=== PATIENT | male | born 1955 | race Caucasian/White ===

== ENCOUNTER 2020-03-05 14:49 | Emergency (ER) | payer BC, SELFPAY ==
[2020-03-05] VITALS (13 sets, daily range): BP systolic 117–168; BP diastolic 75–100; PULSE 60–64; RESP 14–25; TEMP 36.9; O2SAT 92–98; BMI 30.1
--- NOTE | 2020-03-05 15:05 | XR_ITS ---
WS: [id number] Portable AP upright chest, 03/05/2020 Clinical Data: Chest pain Comparison: Portable chest, 12/09/2018. Findings: No nodules, masses or effusions are seen. The heart is normal. The pulmonary vascularity is not increased. No pneumonia or pneumothorax is seen. There is a pacemaker in good position with the generator overlying the left axilla. XR/XR chest 1V portable [id number] Impression: Negative chest.
--- NOTE | 2020-03-05 15:06 | ECG_ITS ---
[facility] Test Date: 2020-03-05 Pat Name: Juan Tolliver Department: Room: Gender: Male Rn Field Case Manager: JESSENIA : 1955 Requested By: Marlena Will Order Number: [id number] Bhargavi MD: Raj Ha M.D. Measurements Intervals [place] Rate: 61 P: -41 IN: 257 QRS: 22 QRSD: 101 T: 33 QT: 368 QTc: 371 Interpretive Statements ELECTRONIC ATRIAL PACEMAKER ABNORMAL RHYTHM ECG Compared to ECG 12/09/2018 10:11:52 Ventricular-paced complex(es) or rhythm no longer present Electronically Signed On 03-05-2020 18:21:50 CDT by Raj Ha M.D. [id number]
--- NOTE | 2020-03-05 15:24 | ED_ITS ---
Documented by User: Marlena Gutierrez 03/05/20 17:44 HPI - Chest Pain General: Chief Complaint: Chest Pain Stated Complaint: CP Time Seen by Provider: 03/05/20 15:05 Source: patient and family Mode of arrival: ambulatory Limitations: no limitations History of Present Illness: HPI narrative: Juan is a 64-year-old male who comes in complaining of chest pain described as a burning in his epigastric area. States this started about 1 PM and he feels the discomfort also in his back. He thought this was similar but not quite exactly like when he had a rib displaced in the past. He went and saw his chiropractor and had a manipulation performed but no improvement in his pain. On the way to his account the patient became nauseated and diaphoretic. He tried 2 sublingual nitroglycerin that he had at home with no improvement. The patient thinks that these medications are both out of date. 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 Ablation is unaware of anything that makes his pain better or worse and again he tried nitro with no improvement. Patient denies any other complaints or concerns at this time. Associated symptoms: Reports diaphoresis, dyspnea and nausea; Deny abdominal pain, fever(s), palpitations, syncope or vomiting Review of Systems Const: Reports: diaphoresis; Denies: fever(s), chills, body aches, fatigue or malaise Eyes: Denies: change in vision, blurry vision, photophobia, eye discomfort, eye discharge, eye redness or yellow eyes ENMT: Denies: throat pain, odynophagia, hoarseness, swelling of lips/tongue, ear or mastoid pain, ear discharge, change in hearing or nasal discharge Card: Reports: chest pain; Denies: palpitations, irregular heart rhythm, edema, lightheadedness, syncope, pre-syncope, dyspnea on exertion or orthopnea Resp: Reports: dyspnea; Denies: productive cough, non-productive cough, wheezing, hemoptysis or chest congestion GI: Reports: nausea; Denies: abdominal pain, vomiting, hematemesis, coffee ground emesis, heartburn, diarrhea, constipation, GI cramping, hematochezia or melena : Denies: flank pain, dysuria, urinary frequency, urinary urgency or hematuria Musc: Denies: neck pain, back pain, extremity pain, extremity swelling, joint pain, joint swelling, joint redness, joint warmth or joint stiffness Skin/Breast: Denies: rash, pruritus, erythema, skin pain or skin tenderness Neuro: Denies: headache(s), numbness in extremities, weakness in extremities, sensory changes, lack of coordination, difficulty walking, dizziness, vertigo, confusion, Slurred speech present or seizure-like activity Juan/Lymph: Denies: easy bruising, easy bleeding, petechiae, purpura or enlarged lymph nodes All/Imm: Denies: urticaria, throat swelling, tongue swelling, facial swelling or acute wheezing PFSH ED PFSH: Medical History Coronary artery spasm Heart block Pacemaker Physical Exam Const: COMMON NORMALS: no acute distress, patient oriented x3, no limitations and alert GENERAL APPEARANCE: cooperative HENMT: COMMON NORMALS: normocephalic, atraumatic, external ears normal, EAC's normal and Normal external nose present HEAD & SCALP: normal to inspection, normocephalic and atraumatic FACE & SINUS: normal facial exam and face symmetric NOSE: Normal external nose present and Normal nares present EXTERNAL EAR: Yes external ears normal EXTERNAL AUDITORY CANAL: EAC's normal MOUTH: Normal oral and palatal mucosa present, lip normal and tongue normal Eye: COMMON NORMALS: Equal, round and reactive pupils present and conjunctivae normal GENERAL EYE: appearance normal, both eyes and all related structures ALIGNMENT: Yes alignment normal PERIORBITAL: periorbital findings normal EYELID: eyelids normal CONJUNCTIVA: Yes conjunctivae normal SCLERA: sclerae normal PUPIL: Yes Equal, round and reactive pupils present Neck/C-Spine: COMMON NORMALS: full ROM, no lymphadenopathy, supple, no meningeal signs and no JVD GENERAL: Yes normal visual inspection and Yes trachea midline Chest: COMMONS NORMALS: normal inspection of the chest and normal palpation of entire chest wall Resp: COMMON NORMALS: normal respiratory effort, No retractions, No use of accessory muscles and clear to auscultation bilaterally EFFORT & INSPECTION: Yes able to speak in complete sentences and Yes symmetric chest movement AUSCULTATION: clear to auscultation bilaterally, no crackles, no rales, no rhonchi and no wheezes Cardio: COMMON NORMALS: no JVD, regular rate, regular rhythm, S1 normal heart sound present and S2 normal heart sound present RATE: regular rate RHYTHM: regular rhythm HEART SOUNDS: S1 normal heart sound present, S2 normal heart sound present, no click, no gallops, no murmurs and no rubs GI: COMMON NORMALS: Soft to palpation and No hepatosplenomegaly present PALPATION: Yes Soft to palpation, No Tenderness to palpation present (GI), No Guarding due to palpation present (GI), No Rigid due to palpation, Yes No hepatosplenomegaly present, No Hernia present, No Palpable mass present and No Pulsatile mass present : COMMON NORMALS: Yes no CVA tenderness BLADDER/KIDNEY EXAM: Yes no CVA tenderness Back/Pelvis: COMMON NORMALS: no CVA tenderness, thoracic and lumbar spine normal to inspection, no thoracic nor lumbar tenderness and thoraco-lumbar ROM normal Extremity: COMMON NORMALS: normal to inspection, full ROM, capillary refill normal, no joint enlargement, no clubbing, cyanosis or edema and no calf tenderness Neuro: COMMON NORMALS: patient oriented x3, CN's II-XII intact bilaterally, moves all extremities, no focal motor deficits and no sensory deficits noted SENSORIUM/ORIENTATION: Yes alert MENINGEAL SIGNS: Yes no meningeal signs SPEECH: speech normal Psych: COMMON NORMALS: mental status grossly normal, Normal thought process present, cooperative, normal affect, speech normal and activity/motor behavior normal SPEECH: Yes normal speech THOUGHT PROCESS: Normal thought process present Skin: COMMON NORMALS: no rashes or lesions noted, turgor normal, no jaundice, no petechiae and no mottling GENERAL SKIN EXAM: no rashes or lesions noted and turgor normal Course Vital Signs: Vital signs: Vital Signs Temperature 98.4 F 03/05/20 14:58 Pulse Rate 60 03/05/20 18:30 Respiratory Rate 17 03/05/20 18:30 Blood Pressure 137/91 03/05/20 18:30 Pulse Oximetry 98 03/05/20 17:15 MDM - Chest Pain MDM Narrative: Medical decision making narrative: 2620 -Case reviewed with Dr. Dotson. Patient had a completely clean heart cath in 2016. His symptoms today sound atypical. Dr. Dotson feels with the patient second EKG and troponin are unremarkable the story that he is given the patient can be safely discharged to follow-up with Dr. Melton. Patient did get relief here with nitroglycerin but still feels as though he has indigestion. This would give him over 4 hours of constant discomfort so I believe a second EKG and troponin should rule him out definitively. While we are waiting I will go ahead and get a ultrasound of his gallbladder. Lab Data: Labs: Lab Results 03/05/20 03/05/20 03/05/20 Range/Units 15:38 15:38 15:38 WBC 8.1 (4.0-10.0) 10^3/ uL RBC 5.12 (4.1-5.3) 10^6/u L Hgb 15.3 (11.7-16.6) g/dL Hct 46.7 (42.0-52.0) % MCV 91.2 (80-94) fL MCH 29.9 (28.0-34.0) pg MCHC 32.8 (30.0-36.0) g/dL RDW 12.0 L (12.1-15.1) % Plt Count 227 (130-400) 10^3/c mm MPV 9.5 (7.4-10.4) fL Neut % (Auto) 56.3 % Lymph % (Auto) 27.1 % [place] % (Auto) 9.8 % Eos % (Auto) 5.8 % Baso % (Auto) 0.5 % Neut # (Auto) 4.58 (1.8-7.7) 10^3/u L Lymph # (Auto) 2.2 (0.8-4.8) 10^3/u L [place] # (Auto) 0.8 (0.2-0.9) 10^3/u L Eos # (Auto) 0.5 (0.0-0.8) 10^3/u L Baso # (Auto) 0.0 (0.0-0.1) 10^3/u L Nucleated RBC % (a uto) 0 % Nucleated RBCs # 0.0 /100WBC PT 13.20 (12.1-14.9) SECO NDS INR 0.97 (0.8-1.2) Sodium 136 (136-145) mmol/L Potassium 4.4 (3.5-5.1) mmol/L Chloride 100 (98-107) mmol/L Carbon Dioxide 26 (22-29) mmol/L Anion Gap 14.4 (5-19) BUN 18 (8-23) mg/dL Creatinine 1.0 (0.7-1.2) mg/dL GFR Calculation 75.7 L (90-130) mL/min Glucose 98 (65-115) mg/dL Calculated Osmolal ity 284 L (285-295) mOsm/k g Calcium 10.2 (8.5-10.5) mg/dL Magnesium 2.1 (1.7-2.3) mg/dL Total Bilirubin 0.3 (0.15-1.2) mg/dL AST 23 (0-40) U/L ALT 28 (0-41) U/L Alkaline Phosphata se 72 (40-130) IU/L Troponin T Baselin e (0-15) ng/L Troponin T 120 Min [place] (0-15) ng/L NT-Pro-B Natriuret Pep 84 (0-125) pg/mL Total Protein 6.9 (6.6-8.7) g/dL Albumin 4.5 (3.5-5.2) g/dL Globulin 2.4 (1.3-4.6) g/dL Lipase 33 (13-60) U/L Urine Color (Yellow) Urine Appearance (CLEAR) Urine pH (5-7) Ur Specific Gravit y (1.005-1.030) Urine Protein (Negative) Urine Glucose (UA) (Normal) Urine Ketones (Negative) Urine Blood (Negative) Urine Nitrate (Negative) Urine Bilirubin (Negative) Urine Urobilinogen (Negative) mg/dL Ur Leukocyte Fabby ase (Negative) Urine RBC (0-2) /hpf Urine WBC (0-5) /hpf Ur Squamous Epith Cells (0-5) /hpf Amorphous Sediment Urine Bacteria (NONE) /hpf H. pylori IgG Anti body (Negative) 03/05/20 03/05/20 03/05/20 Range/Units 15:38 15:38 16:22 WBC (4.0-10.0) 10^3/ uL RBC (4.1-5.3) 10^6/u L Hgb (11.7-16.6) g/dL Hct (42.0-52.0) % MCV (80-94) fL MCH (28.0-34.0) pg MCHC (30.0-36.0) g/dL RDW (12.1-15.1) % Plt Count (130-400) 10^3/c mm MPV (7.4-10.4) fL Neut % (Auto) % Lymph % (Auto) % [place] % (Auto) % Eos % (Auto) % Baso % (Auto) % Neut # (Auto) (1.8-7.7) 10^3/u L Lymph # (Auto) (0.8-4.8) 10^3/u L [place] # (Auto) (0.2-0.9) 10^3/u L Eos # (Auto) (0.0-0.8) 10^3/u L Baso # (Auto) (0.0-0.1) 10^3/u L Nucleated RBC % (a uto) % Nucleated RBCs # /100WBC PT (12.1-14.9) SECO NDS INR (0.8-1.2) Sodium (136-145) mmol/L Potassium (3.5-5.1) mmol/L Chloride (98-107) mmol/L Carbon Dioxide (22-29) mmol/L Anion Gap (5-19) BUN (8-23) mg/dL Creatinine (0.7-1.2) mg/dL GFR Calculation (90-130) mL/min Glucose (65-115) mg/dL Calculated Osmolal ity (285-295) mOsm/k g Calcium (8.5-10.5) mg/dL Magnesium (1.7-2.3) mg/dL Total Bilirubin (0.15-1.2) mg/dL AST (0-40) U/L ALT (0-41) U/L Alkaline Phosphata se (40-130) IU/L Troponin T Baselin e 8 (0-15) ng/L Troponin T 120 Min [place] 6.94 (0-15) ng/L NT-Pro-B Natriuret Pep (0-125) pg/mL Total Protein (6.6-8.7) g/dL Albumin (3.5-5.2) g/dL Globulin (1.3-4.6) g/dL Lipase (13-60) U/L Urine Color (Yellow) Urine Appearance (CLEAR) Urine pH (5-7) Ur Specific Gravit y (1.005-1.030) Urine Protein (Negative) Urine Glucose (UA) (Normal) Urine Ketones (Negative) Urine Blood (Negative) Urine Nitrate (Negative) Urine Bilirubin (Negative) Urine Urobilinogen (Negative) mg/dL Ur Leukocyte Fabby ase (Negative) Urine RBC (0-2) /hpf Urine WBC (0-5) /hpf Ur Squamous Epith Cells (0-5) /hpf Amorphous Sediment Urine Bacteria (NONE) /hpf H. pylori IgG Anti body Negative (Negative) 03/05/20 Range/Units 16:29 WBC (4.0-10.0) 10^3/ uL RBC (4.1-5.3) 10^6/u L Hgb (11.7-16.6) g/dL Hct (42.0-52.0) % MCV (80-94) fL MCH (28.0-34.0) pg MCHC (30.0-36.0) g/dL RDW (12.1-15.1) % Plt Count (130-400) 10^3/c mm MPV (7.4-10.4) fL Neut % (Auto) % Lymph % (Auto) % [place] % (Auto) % Eos % (Auto) % Baso % (Auto) % Neut # (Auto) (1.8-7.7) 10^3/u L Lymph # (Auto) (0.8-4.8) 10^3/u L [place] # (Auto) (0.2-0.9) 10^3/u L Eos # (Auto) (0.0-0.8) 10^3/u L Baso # (Auto) (0.0-0.1) 10^3/u L Nucleated RBC % (a uto) % Nucleated RBCs # /100WBC PT (12.1-14.9) SECO NDS INR (0.8-1.2) Sodium (136-145) mmol/L Potassium (3.5-5.1) mmol/L Chloride (98-107) mmol/L Carbon Dioxide (22-29) mmol/L Anion Gap (5-19) BUN (8-23) mg/dL Creatinine (0.7-1.2) mg/dL GFR Calculation (90-130) mL/min Glucose (65-115) mg/dL Calculated Osmolal ity (285-295) mOsm/k g Calcium (8.5-10.5) mg/dL Magnesium (1.7-2.3) mg/dL Total Bilirubin (0.15-1.2) mg/dL AST (0-40) U/L ALT (0-41) U/L Alkaline Phosphata se (40-130) IU/L Troponin T Baselin e (0-15) ng/L Troponin T 120 Min [place] (0-15) ng/L NT-Pro-B Natriuret Pep (0-125) pg/mL Total Protein (6.6-8.7) g/dL Albumin (3.5-5.2) g/dL Globulin (1.3-4.6) g/dL Lipase (13-60) U/L Urine Color Yellow (Yellow) Urine Appearance Clear (CLEAR) Urine pH 7 (5-7) Ur Specific Gravit y 1.010 (1.005-1.030) Urine Protein Neg (Negative) Urine Glucose (UA) Norm (Normal) Urine Ketones Negative (Negative) Urine Blood Neg (Negative) Urine Nitrate Negative (Negative) Urine Bilirubin Neg (Negative) Urine Urobilinogen Norm (Negative) mg/dL Ur Leukocyte Fabby ase Negative (Negative) Urine RBC None (0-2) /hpf Urine WBC None (0-5) /hpf Ur Squamous Epith Cells None (0-5) /hpf Amorphous Sediment Not Reportable Urine Bacteria None (NONE) /hpf H. pylori IgG Anti body (Negative) Imaging Data^: CXR: Attestation: I personally reviewed and interpreted this imaging study as follows: My impression: No acute cardiopulmonary findings. US: My impression: Sound gallbladder, tech interpretation -no VS gallstones. Gallbladder normal. Please see full formal report. EKG Data^: EKG 1: Attestation: I personally reviewed and interpreted this EKG as follows: EKG interpretation date: 03/05/20 EKG interpretation time: 14:55 Interpretation: Atrial paced rhythm at 61 beats a minute, normal axis, no blocks, normal intervals, no acute ST or T wave changes. Discharge Plan Discharge Patient Disposition: Home Clinical Impression: Chest pain Qualifiers: Chest pain type: unspecified Qualified Code(s): R07.9 - Chest pain, unspecified Condition: Stable Prescriptions: New Protonix 40 mg tablet,delayed release (DR/EC) 40 mg PO DAILY Qty: 60 RF: 0 No Action eszopiclone 3 mg tablet 3 mg PO .bedtime RF: 0 amlodipine 5 mg tablet 5 mg PO DAILY RF: 0 fluoxetine 40 mg capsule 40 mg PO DAILY RF: 0 trazodone 50 mg tablet 50 mg PO .bedtime RF: 0 potassium chloride 20 mEq tablet extended release 20 meq PO DAILY RF: 0 magnesium oxide 400 mg (241.3 mg magnesium) tablet 400 mg PO DAILY RF: 0 potassium chloride 20 mEq tablet extended release 20 meq PO DAILY PRN (Reason: electrolyte replenishment) Qty: 90 RF: 1 isosorbide dinitrate 30 mg tablet 15 mg PO BID Qty: 90 RF: 3 metoprolol tartrate 25 mg tablet 12.5 mg PO BID 90 Days Qty: 90 RF: 3 Discharge Orders: Discharge Order (Routine); Ordered 03/05/20 Ordered By: Sacha Clements Referrals: Jose Wilkerson MD [Primary Care Provider] - 1-3 days Discharge Diet: Advance as tolerated Discharge Activity: Resume usual activity Patient Instructions: Chest Pain (ED) Coding Level of Care Code ED Outside Operator for Chg Fwd Exam Comprehensive Documented by User: Sacha Clements MD 03/05/20 19:15 HPI - Chest Pain General: Chief Complaint: Chest Pain Stated Complaint: CP Time Seen by Provider: 03/05/20 15:05 [facility] ED PFSH: Medical History Coronary artery spasm Heart block Pacemaker Course Vital Signs: Vital signs: Vital Signs Temperature 98.4 F 03/05/20 14:58 Pulse Rate 60 03/05/20 18:30 Respiratory Rate 17 03/05/20 18:30 Blood Pressure 137/91 10/22/20 18:30 Pulse Oximetry 98 03/05/20 17:15 MDM - Chest Pain MDM Narrative: Medical decision making narrative: Patient presents here with chest pain and epigastric pain. Patient states the pain did happen after eating it was burning in sensation. Could be gastritis we will start him on Protonix. Initial repeat troponins are negative and ultrasound is negative as well. Patient is stable for discharge is to follow-up with Dr. Dotson and return if worsening. Patient understands agrees the plan. Lab Data: Labs: Lab Results 03/05/20 03/05/20 03/05/20 Range/Units 15:38 15:38 15:38 WBC 8.1 (4.0-10.0) 10^3/ uL RBC 5.12 (4.1-5.3) 10^6/u L Hgb 15.3 (11.7-16.6) g/dL Hct 46.7 (42.0-52.0) % MCV 91.2 (80-94) fL MCH 29.9 (28.0-34.0) pg MCHC 32.8 (30.0-36.0) g/dL RDW 12.0 L (12.1-15.1) % Plt Count 227 (130-400) 10^3/c mm MPV 9.5 (7.4-10.4) fL Neut % (Auto) 56.3 % Lymph % (Auto) 27.1 % [place] % (Auto) 9.8 % Eos % (Auto) 5.8 % Baso % (Auto) 0.5 % Neut # (Auto) 4.58 (1.8-7.7) 10^3/u L Lymph # (Auto) 2.2 (0.8-4.8) 10^3/u L [place] # (Auto) 0.8 (0.2-0.9) 10^3/u L Eos # (Auto) 0.5 (0.0-0.8) 10^3/u L Baso # (Auto) 0.0 (0.0-0.1) 10^3/u L Nucleated RBC % (a uto) 0 % Nucleated RBCs # 0.0 /100WBC PT 13.20 (12.1-14.9) SECO NDS INR 0.97 (0.8-1.2) Sodium 136 (136-145) mmol/L Potassium 4.4 (3.5-5.1) mmol/L Chloride 100 (98-107) mmol/L Carbon Dioxide 26 (22-29) mmol/L Anion Gap 14.4 (5-19) BUN 18 (8-23) mg/dL Creatinine 1.0 (0.7-1.2) mg/dL GFR Calculation 75.7 L (90-130) mL/min Glucose 98 (65-115) mg/dL Calculated Osmolal ity 284 L (285-295) mOsm/k g Calcium 10.2 (8.5-10.5) mg/dL Magnesium 2.1 (1.7-2.3) mg/dL Total Bilirubin 0.3 (0.15-1.2) mg/dL AST 23 (0-40) U/L ALT 28 (0-41) U/L Alkaline Phosphata se 72 (40-130) IU/L Troponin T Baselin e (0-15) ng/L Troponin T 120 Min [place] (0-15) ng/L NT-Pro-B Natriuret Pep 84 (0-125) pg/mL Total Protein 6.9 (6.6-8.7) g/dL Albumin 4.5 (3.5-5.2) g/dL Globulin 2.4 (1.3-4.6) g/dL Lipase 33 (13-60) U/L Urine Color (Yellow) Urine Appearance (CLEAR) Urine pH (5-7) Ur Specific Gravit y (1.005-1.030) Urine Protein (Negative) Urine Glucose (UA) (Normal) Urine Ketones (Negative) Urine Blood (Negative) Urine Nitrate (Negative) Urine Bilirubin (Negative) Urine Urobilinogen (Negative) mg/dL Ur Leukocyte Fabby ase (Negative) Urine RBC (0-2) /hpf Urine WBC (0-5) /hpf Ur Squamous Epith Cells (0-5) /hpf Amorphous Sediment Urine Bacteria (NONE) /hpf H. pylori IgG Anti body (Negative) 03/05/20 03/05/20 03/05/20 Range/Units 15:38 15:38 16:22 WBC (4.0-10.0) 10^3/ uL RBC (4.1-5.3) 10^6/u L Hgb (11.7-16.6) g/dL Hct (42.0-52.0) % MCV (80-94) fL MCH (28.0-34.0) pg MCHC (30.0-36.0) g/dL RDW (12.1-15.1) % Plt Count (130-400) 10^3/c mm MPV (7.4-10.4) fL Neut % (Auto) % Lymph % (Auto) % [place] % (Auto) % Eos % (Auto) % Baso % (Auto) % Neut # (Auto) (1.8-7.7) 10^3/u L Lymph # (Auto) (0.8-4.8) 10^3/u L [place] # (Auto) (0.2-0.9) 10^3/u L Eos # (Auto) (0.0-0.8) 10^3/u L Baso # (Auto) (0.0-0.1) 10^3/u L Nucleated RBC % (a uto) % Nucleated RBCs # /100WBC PT (12.1-14.9) SECO NDS INR (0.8-1.2) Sodium (136-145) mmol/L Potassium (3.5-5.1) mmol/L Chloride (98-107) mmol/L Carbon Dioxide (22-29) mmol/L Anion Gap (5-19) BUN (8-23) mg/dL Creatinine (0.7-1.2) mg/dL GFR Calculation (90-130) mL/min Glucose (65-115) mg/dL Calculated Osmolal ity (285-295) mOsm/k g Calcium (8.5-10.5) mg/dL Magnesium (1.7-2.3) mg/dL Total Bilirubin (0.15-1.2) mg/dL AST (0-40) U/L ALT (0-41) U/L Alkaline Phosphata se (40-130) IU/L Troponin T Baselin e 8 (0-15) ng/L Troponin T 120 Min [place] 6.94 (0-15) ng/L NT-Pro-B Natriuret Pep (0-125) pg/mL Total Protein (6.6-8.7) g/dL Albumin (3.5-5.2) g/dL Globulin (1.3-4.6) g/dL Lipase (13-60) U/L Urine Color (Yellow) Urine Appearance (CLEAR) Urine pH (5-7) Ur Specific Gravit y (1.005-1.030) Urine Protein (Negative) Urine Glucose (UA) (Normal) Urine Ketones (Negative) Urine Blood (Negative) Urine Nitrate (Negative) Urine Bilirubin (Negative) Urine Urobilinogen (Negative) mg/dL Ur Leukocyte Fabby ase (Negative) Urine RBC (0-2) /hpf Urine WBC (0-5) /hpf Ur Squamous Epith Cells (0-5) /hpf Amorphous Sediment Urine Bacteria (NONE) /hpf H. pylori IgG Anti body Negative (Negative) 03/05/20 Range/Units 16:29 WBC (4.0-10.0) 10^3/ uL RBC (4.1-5.3) 10^6/u L Hgb (11.7-16.6) g/dL Hct (42.0-52.0) % MCV (80-94) fL MCH (28.0-34.0) pg MCHC (30.0-36.0) g/dL RDW (12.1-15.1) % Plt Count (130-400) 10^3/c mm MPV (7.4-10.4) fL Neut % (Auto) % Lymph % (Auto) % [place] % (Auto) % Eos % (Auto) % Baso % (Auto) % Neut # (Auto) (1.8-7.7) 10^3/u L Lymph # (Auto) (0.8-4.8) 10^3/u L [place] # (Auto) (0.2-0.9) 10^3/u L Eos # (Auto) (0.0-0.8) 10^3/u L Baso # (Auto) (0.0-0.1) 10^3/u L Nucleated RBC % (a uto) % Nucleated RBCs # /100WBC PT (12.1-14.9) SECO NDS INR (0.8-1.2) Sodium (136-145) mmol/L Potassium (3.5-5.1) mmol/L Chloride (98-107) mmol/L Carbon Dioxide (22-29) mmol/L Anion Gap (5-19) BUN (8-23) mg/dL Creatinine (0.7-1.2) mg/dL GFR Calculation (90-130) mL/min Glucose (65-115) mg/dL Calculated Osmolal ity (285-295) mOsm/k g Calcium (8.5-10.5) mg/dL Magnesium (1.7-2.3) mg/dL Total Bilirubin (0.15-1.2) mg/dL AST (0-40) U/L ALT (0-41) U/L Alkaline Phosphata se (40-130) IU/L Troponin T Baselin e (0-15) ng/L Troponin T 120 Min [place] (0-15) ng/L NT-Pro-B Natriuret Pep (0-125) pg/mL Total Protein (6.6-8.7) g/dL Albumin (3.5-5.2) g/dL Globulin (1.3-4.6) g/dL Lipase (13-60) U/L Urine Color Yellow (Yellow) Urine Appearance Clear (CLEAR) Urine pH 7 (5-7) Ur Specific Gravit y 1.010 (1.005-1.030) Urine Protein Neg (Negative) Urine Glucose (UA) Norm (Normal) Urine Ketones Negative (Negative) Urine Blood Neg (Negative) Urine Nitrate Negative (Negative) Urine Bilirubin Neg (Negative) Urine Urobilinogen Norm (Negative) mg/dL Ur Leukocyte Fabby ase Negative (Negative) Urine RBC None (0-2) /hpf Urine WBC None (0-5) /hpf Ur Squamous Epith Cells None (0-5) /hpf Amorphous Sediment Not Reportable Urine Bacteria None (NONE) /hpf H. pylori IgG Anti body (Negative) EKG Data^: EKG 2: Attestation: I personally reviewed and interpreted this EKG as follows: EKG interpretation date: 03/05/20 EKG interpretation time: 18:41 Interpretation: paced rhythm hr [address] or t wave abnormalities qrs 102 qtc 380 Discharge Plan Discharge Patient Disposition: Home Clinical Impression: Chest pain Qualifiers: Chest pain type: unspecified Qualified Code(s): R07.9 - Chest pain, unspecified Condition: Stable Prescriptions: New Protonix 40 mg tablet,delayed release (DR/EC) 40 mg PO DAILY Qty: 60 RF: 0 No Action eszopiclone 3 mg tablet 3 mg PO .bedtime RF: 0 amlodipine 5 mg tablet 5 mg PO DAILY RF: 0 fluoxetine 40 mg capsule 40 mg PO DAILY RF: 0 trazodone 50 mg tablet 50 mg PO .bedtime RF: 0 potassium chloride 20 mEq tablet extended release 20 meq PO DAILY RF: 0 magnesium oxide 400 mg (241.3 mg magnesium) tablet 400 mg PO DAILY RF: 0 potassium chloride 20 mEq tablet extended release 20 meq PO DAILY PRN (Reason: electrolyte replenishment) Qty: 90 RF: 1 isosorbide dinitrate 30 mg tablet 15 mg PO BID Qty: 90 RF: 3 metoprolol tartrate 25 mg tablet 12.5 mg PO BID 90 Days Qty: 90 RF: 3 Discharge Orders: Discharge Order (Routine); Ordered 03/05/20 Ordered By: Sacha Clements Referrals: Jose Wilkerson MD [Primary Care Provider] - 1-3 days Discharge Diet: Advance as tolerated Discharge Activity: Resume usual activity Patient Instructions: Chest Pain (ED) Coding Level of Care Code ED Outside Operator for Chg Fwd Exam Comprehensive
[2020-03-05] MEDS: aspirin 325 mg Tablet PO (15:51)
[2020-03-05 15:52] LABS: Basophils % 0.5 %; Eosinophils # 0.5 10^3/uL (0.0-0.8); Eosinophils % 5.8 %; Hematocrit 46.7 % (42.0-52.0); Hemoglobin 15.3 g/dL (11.7-16.6); Lymphocytes # 2.2 10^3/uL (0.8-4.8); Lymphocytes % 27.1 %; Mean Corpuscular HGB Conc 32.8 g/dL (30.0-36.0); Mean Corpuscular Hemoglobin 29.9 pg (28.0-34.0); Mean Corpuscular Volume 91.2 fL (80-94); Mean Platelet Volume 9.5 fL (7.4-10.4); Monocytes # 0.8 10^3/uL (0.2-0.9); Monocytes % 9.8 %; Neutrophils # 4.58 10^3/uL (1.8-7.7); Neutrophils % 56.3 %; Nucleated Red Blood Cells % 0 %; Platelet Count 227 10^3/cmm (130-400); Red Blood Count 5.12 10^6/uL (4.1-5.3); White Blood Count 8.1 10^3/uL (4.0-10.0)
[2020-03-05] MEDS: nitroglycerin 0.4 mg sublingual Tablet SUBLINGUAL (15:58)
[2020-03-05 16:17] LABS: Alanine Aminotransferase 28 U/L (0-41); Albumin Level 4.5 g/dL (3.5-5.2); Alkaline Phosphatase 72 IU/L (40-130); Anion Gap 14.4 (5-19); Aspartate Amino Transferase 23 U/L (0-40); Blood Urea Nitrogen 18 mg/dL (8-23); Calcium 10.2 mg/dL (8.5-10.5); Carbon Dioxide 26 mmol/L (22-29); Chloride 100 mmol/L (98-107); Globulin 2.4 g/dL (1.3-4.6); Glomerular Filtration Rate 75.7 mL/min (90-130); Glucose 98 mg/dL (65-115); Lipase 33 U/L (13-60); Magnesium 2.1 mg/dL (1.7-2.3); NT Pro B Type Natriuretic Pept 84 pg/mL (0-125); Osmolality Calculated 284 mOsm/kg (285-295); Potassium 4.4 mmol/L (3.5-5.1); Sodium 136 mmol/L (136-145); Total Bilirubin 0.3 mg/dL (0.15-1.2); Total Protein 6.9 g/dL (6.6-8.7)
[2020-03-05 16:18] LABS: Troponin(5th) Baseline 8 ng/L (0-15)
--- NOTE | 2020-03-05 16:23 | USR_ITS ---
PROCEDURE INFORMATION: Exam: US Abdomen, Limited; Right Upper Quadrant Exam date and time: 03/05/2020 5:15 PM Age: 64 years old Clinical indication: Abdominal pain; Acute; Patient HX: PT has chest pain and has history of an mi. Cardiac pain source has been ruled out. TECHNIQUE: Imaging protocol: US abdomen. Real time ultrasound with image documentation. Limited exam focused on the right upper quadrant. COMPARISON: CTA Thoracic/Abd/Pelvis Aorta 09/17/2018 8:35 AM FINDINGS: Liver: The liver is of normal echogenicity measuring 18.8 cm. Gallbladder: The gallbladder is partially contracted with a wall thickness 3 mm. Common bile duct: CBD: 5.5 mm. Pancreas: The pancreas is obscured by bowel gas. Right kidney: Normal. No mass. No hydronephrosis. Intraperitoneal space: No ascites. US/US gall bladder 21344 IMPRESSION: 1. No acute findings. 2. Partially contracted gallbladder. 3. Enlarged liver.
[2020-03-05 16:42] LABS: INR 0.97 (0.8-1.2)
--- NOTE | 2020-03-05 17:06 | ECG_ITS ---
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 Measurements Intervals [place] Rate: 59 P: 32 NE: 267 QRS: 11 QRSD: 102 T: 42 QT: 380 QTc: 379 Interpretive Statements ELECTRONIC ATRIAL PACEMAKER ABNORMAL RHYTHM ECG Compared to ECG 03/05/2020 14:55:16 No significant changes Electronically Signed On 03-05-2020 18:44:39 CDT by Raj Ha M.D. [id number]
[2020-03-05 17:23] LABS: Bilirubin Urine Neg (Negative); Blood Urine Neg (Negative); Glucose Urine UA Norm (Normal); Ketones Urine Negative (Negative); Leukocyte Esterase Urine Negative (Negative); Nitrate Urine Negative (Negative); Protein Urine Neg (Negative); Urine Appearance Clear (CLEAR); Urine Color Yellow (Yellow); Urobilinogen Urine Norm (Negative); pH Urine 7 (5-7)
[2020-03-05 17:25] LABS: Add Urine Culture? No
[2020-03-05] MEDS: lidocaine 2% viscous 15 ML, aluminum-mag hydrox-simethicon 30 ML, sucralfate oral liq 1 GM PO (17:28)
--- NOTE | 2020-03-05 17:34 | PC.NURSE ---
us in room for evaluation
[2020-03-05 17:55] LABS: H. Pylori IgG Antibody Negative (Negative)
[2020-03-05 19:02] LABS: Troponin 5 2HR 6.94 ng/L (0-15)
[2020-03-05 19:12] LABS: Troponin 5 2HR Delta -1.06 ABS# (0-10)
== END 2020-03-05 19:36 | disposition home or self-care (01) ==
PROVIDERS: Emergency Medicine; Emergency Provider Emergency Medicine; Family Provider Family Medicine; PCP Family Medicine
DX: R07.9 Chest pain, unspecified (principal); Z95.0 Presence of cardiac pacemaker
CPT/HCPCS: 12345; 71045; 76705; 80053; 81001; 83690; 83735; 83880; 84484; 85025; 85610; 86677; 93005; 96372; 99283; 99284

== ENCOUNTER 2020-05-26 09:21 | Outpatient (CLI) | payer OTHER, SELFPAY ==
[2020-05-26 09:40] VITALS: BP 152/85; PULSE 64; RESP 18; O2SAT 99
[2020-05-26 09:49] VITALS: BMI 31.1
--- NOTE | 2020-05-26 09:52 | AMB.MCA ---
Patient Information Referred by: Unruly Symptom onset date: 05/22/20 COVID 19 common symptoms: positive dyspnea, fatigue and body aches COVID 19 other sytmptoms: negative chest pressure, chest pain, pleuritic pain, requiring oxygen, requiring more oxygen, respiratory distress, cyanosis, lethargy or confusion Severity: mild Treatment prior to arrival: none [facility]ZH COVID test results: No Data to Display outside results available, scanned Criteria/Plan Inclusion/Exclusion Criteria weight >/= 40kg, + direct test </= 10 days ago and symptom onset </= 10 days ago age >/= 55 and has hypertension and age >/= 55 and has diabetes not requiring hospitalization, not requiring oxygen (if not chronically on oxygen) and no increase oxygen requirement (if chronically on oxygen) Patient education patient/caregiver received/reviewed fact sheet, Emergency Use Authorization/unapproved drug status discussed with patient/caregiver, alternatives to this treatment discussed with patient/caregiver, risks and benefits of medication reviewed with patient/caregiver, patient/caregiver given opportunity for questions, which were answered and patient/caregiver consents to receiving Monoclonal Antibody Treatment Plan for treatment Meets criteria for Monoclonal Antibody infusion
[2020-05-26 11:19] VITALS: BP 123/73; PULSE 60; RESP 16; TEMP 37; O2SAT 97
[2020-05-26 11:50] VITALS: BP 122/74; PULSE 60; RESP 16; TEMP 36.6; O2SAT 97
[2020-05-26 12:14] VITALS: BP 131/74; PULSE 62; RESP 16; O2SAT 98
[2020-05-26 13:02] VITALS: BP 130/80; PULSE 62; RESP 16; O2SAT 97
--- NOTE | 2020-05-29 14:36 | DCPLANNER ---
Addendum entered by Staci Funes 06/09/20 12:35: general store manager called to check on patient after getting the BAM infusion. general store manager was unable to speak with patient at this time, a voicemail was left for patient at this time. Original Note: general store manager had message that patient received the BAM infusion. general store manager called to check on patient after receiving the BAM infusion. Patient stated that he in not feeling good. Patient stated that before the infusion, he had body aches, and headache. After the infusion he is not feeling that great. He stated that his body aches are a little better, his headache is now a dull headache, he is very congested and he is not running a fever at this time. Patient stated that he has a primary care physician that he will follow up.
== END 2020-05-26 13:09 | disposition home or self-care (01) ==
PROVIDERS: Family Provider Family Medicine; PCP Family Medicine; Visit Provider Nurse Practitioner Family
DX: U07.1 COVID-19 (principal)
CPT/HCPCS: 96365; J7050

== ENCOUNTER → 2021-01-28 16:22 | Outpatient (BNVA) | payer OTHER, SELFPAY | PROVIDERS: PCP Family Medicine; Referring Provider Family Medicine; Visit Provider Podiatrist Foot & Ankle Surgery | DX: D17.9 Benign lipomatous neoplasm, unspecified (principal) | CPT/HCPCS: 73630 ==

== ENCOUNTER 2021-02-09 15:17 | Outpatient (CLI) | payer OTHER, SELFPAY ==
--- NOTE | 2021-02-09 15:20 | CT_ITS ---
WS: [id number] NONCONTRAST CT LEFT FOOT TECHNIQUE: Noncontrast CT left foot with coronal and sagittal reformatted images. CLINICAL INFORMATION: mass COMPARISON: Radiograph January 28, 2021 DLP: 682.[address] scans at [facility] use at least one of these dose optimization techniques: automated e xposure control; mA and/or kV adjustment per patient size (includes targeted exams where dose is matc hed to clinical indication); or iterative reconstruction. FINDINGS: Deep to the palpable marker is a small fatty lesion consistent with a tiny lipoma measuring measuring 11 x 5 x 11 mm. Normal ankle mortise. Normal medial and lateral malleolus. Normal talus. Normal talocalcaneal articul ation. Normal navicular. Normal metatarsals. CT/CT foot LT wo con* [id number] IMPRESSION: Deep to the palpable marker is a small fatty lesion consistent with a tiny lipo ma measuring measuring 11 x 5 x 11 mm.
== END 2021-02-09 15:18 | disposition home or self-care (01) ==
PROVIDERS: PCP Family Medicine; Visit Provider Podiatrist Foot & Ankle Surgery
DX: M79.89 Other specified soft tissue disorders (principal); M79.672 Pain in left foot
CPT/HCPCS: 73700

== ENCOUNTER → 2021-03-22 15:55 | Outpatient (BNVA) | payer OTHER, SELFPAY | PROVIDERS: PCP Family Medicine; Visit Provider Podiatrist Foot & Ankle Surgery | DX: M79.89 Other specified soft tissue disorders (principal); M79.672 Pain in left foot; Z20.822 Contact with and (suspected) exposure to COVID-19 | CPT/HCPCS: 87635 ==

== ENCOUNTER 2021-03-26 05:52 | Day surgery (SDC) | payer OTHER, SELFPAY ==
[2021-03-25 14:16] VITALS: BMI 31.4
[2021-03-26 06:05] VITALS: BP 143/82; PULSE 70; RESP 15; TEMP 36.6; O2SAT 94
--- NOTE | 2021-03-26 06:34 | P.HPUD_ITS ---
Surgery/Procedure H&P Update DATE OF PROCEDURE: March 26, 2021 DATE H&P PERFORMED: 03/22/21 H&P UPDATE INFORMATION: I have reviewed H&P completed within last 30 days, I have examined patient prior to procedure, No changes to prior documentation and H&P is in [facility] EMR on date indicated PREOP DIAGNOSIS: Soft tissue mass left foot PLANNED PROCEDURE: Operation Date: 03/26/21 07:00 Proposed Procedures p Excision of soft tissue mass left foot 44500 M79.89(Left) - Nitin Marcum DPM
--- NOTE | 2021-03-26 06:34 | PM.OP ---
Operative Report Date of procedure: March 26, 2021 Pre-op Diagnosis: Soft tissue mass left foot Post-op diagnosis: same Post-op Findings: Consistent with a lipoma Procedure Done: Excision of soft tissue mass left foot CPT. 94182 Implants: 3-0 Vicryl, 4-0 Vicryl, 4-0 nylon Specimens removed/disposition: none Pathology: Soft tissue mass left foot measures 1 cm x 1.5 cm lobulated adipose tissue. Surgeon: Nitin Marcum DPM Software Integrator: Eliane Anesthesia: MAC Estimated blood loss: 5 Tourniquet time: 15 IV fluids: 0 Urine output: 0 Complications: none Findings: Lipoma Condition: stable Disposition: PACU Brief History: History of lipoma excision with recurrence patient is having pain on a daily basis with everyday activity and wearing normal shoes. Like to have the soft tissue mass excised again. Risks include pain, bleeding, numbness, infection, chronic swelling, paresthesias, neuritis and recurrence of soft tissue mass. Patient is agreeable wishes to proceed. N.p.o. since midnight. Covid screening negative, informed consent signed by patient and myself and I initialed his left foot. No guarantees written, expressed or implied. Procedure: Under mild sedation the patient was brought to the operating room and remained on the gurney in supine position. A timeout was performed. Anesthesia was then administered by the anesthesia service. Local anesthesia injected by myself consisting of one-to-one mixture 1% lidocaine 0.5% Marcaine plain reverse Cook fashion to the left foot. Well-padded pneumatic tourniquet applied to left ankle. Left lower extremity was then scrubbed, prepped and draped utilizing normal aseptic technique. It was wrapped with an Esmarch bandage and tourniquet inflated to 250 mmHg. Attention was directed to the left dorsal lateral foot where an obvious palpable soft tissue mass was appreciated just dorsal to the fifth metatarsal base and at the level of the metaphyseal diaphyseal juncture linear longitudinal incision was made with #15 blade and care was taken to preserve and retract neurovascular and tendinous structures with a combination of sharp and blunt dissection circumferentially around the soft tissue mass was was excised in total and passed from operative field measures 1 cm x 1.5 cm sent to pathology for review was consistent with adipose tissue likely lipoma. No remaining abnormal tissue visualized incision was flushed with saline solution and closed in a layered fashion with 3-0 Vicryl deep fascia and subcutaneous tissue with 4-0 Vicryl and skin with 4-0 nylon. Incision was dressed with Adaptic, sterile 4 x 4, Kerlix and Gilbert wrap followed by application of postop shoe and the tourniquet was deflated with a prompt hyperemic response noted to the distal digits of left foot. Patient tolerated the procedure well and was transferred to the PACU with vital signs stable and vascular status intact. Following a period of postoperative monitoring will be discharged home was given doxycycline prophylactically for 14 days with history of MRSA and history of wound to this area from previous surgery from another surgeon. Was also given hydrocodone to be taken judiciously as needed for pain. Will follow up Monday next week in podiatry clinic for first dressing change 04/02/2021.
--- NOTE | 2021-03-26 06:35 | ANES.PREANE2 ---
Pre-Anesthetic Assessment Pre-Anesthetic Assessment: Height/Weight: Height 1.83 m Weight 105.233 kg Preop Diagnosis: Soft tissue mass left foot Proposed Procedure: Operation Date: 03/26/21 07:00 Proposed Procedures p Excision of soft tissue mass left foot 76414 M79.89(Left) - Nitin Marcum DPM Familial anesthetic complications: none Was Beta Drake taken within 24 hours: Yes Was Clonidine taken within 24 hours: N/A Last intake: Intake Last Liquid Date 03/25/21 Last Liquid Time 22:00 Last Solid Date 03/25/21 Last Solid Time 22:00 Social: Social History: No alcohol and No tobacco Exam: Pre-Anes Outpt Exam: alert, oriented x 3, clear to auscultation bilaterally and regular rate & rhythm Airway: Cervical ROM: WNL MP: 3 Dentition: Other ( I have one bad tooth ) CV/HEM: CV/HEM: Arrythmia (padma/junctional s/p permanent pacemaker) and MD (states was takotsubo's in 2006 - now able to achieve > 4 METS w/out symptoms, heart completely back to normal) Anesthetic Plan: ASA status: 3 Anesthesia: MAC Risk of > 500 ml blood loss (7ml/kg in children): No PFSH Anesthesia PFSH: Medical History Coronary artery spasm Heart block Pacemaker Data Anesthesia Cardiac Studies: No Data to Display
[2021-03-26] MEDS: sodium chloride 0.9% 1,000 ML 30 ML IV (06:39)
[2021-03-26] MEDS: lidocaine 1% INJ 20 mL 15 ML INJECTION (07:18)
[2021-03-26 07:34] VITALS: BP 112/66; PULSE 60; RESP 17; TEMP 36.6; O2SAT 92
[2021-03-26 07:36] VITALS: BP 107/64; PULSE 60; RESP 17; O2SAT 94
[2021-03-26 07:41] VITALS: BP 99/63; PULSE 61; RESP 16; TEMP 36.6; O2SAT 94
[2021-03-26 07:56] VITALS: BP 111/71; PULSE 61; RESP 15; TEMP 36.6; O2SAT 95
--- NOTE | 2021-03-26 14:19 | ANE.PACU2 ---
Inpatient post-anesthesia follow up: Airway intact: Yes Vital signs: Temperature 97.9 F Pulse Rate 61 Respiratory Rate 15 Blood Pressure 111/71 Pulse Oximetry 95 Oxygen Delivery Me thod Room Air Oxygen Flow Rate Fraction of Inspir ed Oxygen Hydration adequate: Yes Nausea and vomiting: No Pain level: 2 Mental status: Baseline
== END 2021-03-26 08:25 | disposition home or self-care (01) ==
PROVIDERS: PCP Family Medicine; Visit Provider Podiatrist Foot & Ankle Surgery
PROC: (CPT 28041; principal; 2021-03-26 07:00)
DX: M79.89 Other specified soft tissue disorders (principal); D17.79 Benign lipomatous neoplasm of other sites
CPT/HCPCS: 28041; 88304; J0690; J2250; J2704; J3010; J3490; J7030

== ENCOUNTER → 2022-05-20 10:41 | Outpatient (BNVA) | payer MEDICARE, SELFPAY | PROVIDERS: PCP Family Medicine; Visit Provider Internal Medicine Cardiovascular Disease | DX: I42.9 Cardiomyopathy, unspecified (principal); G47.10 Hypersomnia, unspecified; I45.9 Conduction disorder, unspecified; Z95.0 Presence of cardiac pacemaker | CPT/HCPCS: 93280; 99214; Q3014 ==

== ENCOUNTER 2022-07-21 12:00 | Outpatient (CLI) | payer MEDICARE, SELFPAY | END 2022-07-21 12:01 | disposition home or self-care (01) | LOC: SLEEP 07-22 11:00 | PROVIDERS: PCP Family Medicine; Visit Provider Internal Medicine Cardiovascular Disease | DX: G47.10 Hypersomnia, unspecified (principal) | CPT/HCPCS: G0399 ==

== ENCOUNTER → 2022-11-30 15:46 | Outpatient (BNVA) | payer MEDICARE, SELFPAY | PROVIDERS: PCP Family Medicine; Visit Provider Internal Medicine Cardiovascular Disease | DX: Z45.010 Encounter for checking and testing of cardiac pacemaker pulse generator [battery] (principal) | CPT/HCPCS: 93296 ==

== ENCOUNTER → 2023-01-27 10:29 | Outpatient (BNVA) | payer MEDICARE, SELFPAY | PROVIDERS: PCP Family Medicine; Visit Provider Internal Medicine Cardiovascular Disease | DX: I42.9 Cardiomyopathy, unspecified (principal); I45.9 Conduction disorder, unspecified; Z95.0 Presence of cardiac pacemaker; G47.10 Hypersomnia, unspecified; Z87.891 Personal history of nicotine dependence | CPT/HCPCS: 99214 ==

== ENCOUNTER 2023-10-11 06:13 | Emergency (ER) | payer MEDICARE, SELFPAY ==
[2023-10-11 06:16] VITALS: BP 141/78; PULSE 61; RESP 16; TEMP 36.6; O2SAT 99; BMI 28.5
--- NOTE | 2023-10-11 06:16 | ECG_ITS ---
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 Measurements Intervals [place] Rate: 71 P: 121 IN: 243 QRS: 56 QRSD: 95 T: 60 QT: 381 QTc: 415 Interpretive Statements ELECTRONIC ATRIAL PACEMAKER Compared to ECG 03/05/2020 18:41:51 No significant changes Electronically Signed On 10-11-2023 13:55:34 CDT by Raj Ha M.D. [id number]
--- NOTE | 2023-10-11 06:20 | XRR_ITS ---
PROCEDURE INFORMATION: Exam: XR Chest Exam date and time: 10/11/2023 6:25 AM Age: 68 years old Clinical indication: Pain; Chest pressure; Prior surgery; Surgery date: 6+ months; Surgery type: Pacer; Additional info: Chest pain. No history of recent trauma or surgery is provided. TECHNIQUE: Imaging protocol: Radiologic exam of the chest. 4image(s) are provided. Views: 1 view. COMPARISON: 1. CR XR chest 2V* [id number] 11/21/2022 10:10 AM 2. CR XR chest 2V* [id number] 03/07/2022 3:15 PM 3. CR XR chest 1V 15060 12/09/2018 10:44 AM FINDINGS: Tubes, catheters and devices: There are cardiac leads with similar overall positioning. Lungs: No lobar consolidation is appreciated.There is some subsegmental atelectasis versus post inflammatory scarring demonstrated. There is some granulomatous type appearance overall similar including about the right lower lung zone. Pleural spaces: No pneumothorax or significant pleural effusion is appreciated. Heart/Mediastinum: The cardiomediastinal silhouette is within normal. No cardiac decompensation is appreciated. Diaphragm: The hemidiaphragms are symmetric. Bones/joints: Osseous alignment is maintained. No interval displaced fracture or dislocation is appreciated. Soft tissues: No radiopaque foreign body or subcutaneous emphysema is appreciated. Other findings: No other significant interval changes are appreciated. XR/XR chest 1V portable [id number] IMPRESSION: No lobar consolidation is appreciated.No interval acute cardiopulmonary changes are appreciated.
[2023-10-11] MEDS: aspirin 81 mg Chew Tablet 324 MG PO (06:27)
[2023-10-11 06:38] LABS: Basophils % 0.2 %; Eosinophils % 0.1 %; Lymphocytes # 0.9 10^3/uL (0.8-4.8); Lymphocytes % 8.3 %; Mean Corpuscular HGB Conc 32.4 g/dL (30-55); Mean Corpuscular Hemoglobin 30.2 pg (27-33); Mean Corpuscular Volume 93.2 fl (82-101); Mean Platelet Volume 9.6 fL (7.4-10.4); Monocytes # 0.5 10^3/uL (0.2-0.9); Neutrophils # 8.94 10^3/uL (1.8-7.7); Nucleated Red Blood Cells % 0 %; Platelet Count 205 10^3/cmm (157-399); Red Blood Count 5.47 10^6/uL (3.85-5.65); Red Cell Distribution Width 12.5 % (12.1-15.1); White Blood Count 10.39 10^3/uL (3.29-11.43)
--- NOTE | 2023-10-11 06:39 | ED_ITS ---
HPI - Chest Pain 2 General: Chief Complaint: Chest Pain Stated Complaint: chest pain Time Seen by Provider: 10/11/23 06:20 Source: patient Mode of arrival: ambulatory History of Present Illness: Six 8-year-old male presents emergency room with complaints of left-sided chest pain with nausea and vomiting for the last 2 days, Patient recently reports having flulike symptoms. Had a couple episodes of diarrhea denies any hematochezia melena hematemesis or coffee-ground emesis. Complaining of significant discomfort in his back between his shoulder blades. Patient has a known history of Takotsubo's has a history of cardiomyopathy. He also developed bradycardia and had a pacer placed. He has not had any stents cardiac cath done on 07/09/2015 showed left main normal diffuse luminal irregularities in the LAD left circumflex and RCA. 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 His original event occurred in 2015 he thinks he had a stress test shortly after that but has not had any further cardiac testing since. CPK-MB at that time was slightly elevated. MD complaint: chest pain Timing of current episode: episodic Onset: during rest Pain location: left chest Pain radiation: back Quality: aching Relieving factors: nothing Exacerbating factors: nothing Context: recent illness (Flulike symptoms) Associated symptoms: Reports nausea and vomiting; Deny dyspnea or fever(s) Treatment prior to arrival: none Review of Systems 2 Const: Denies: fever(s) or chills Card: Reports: chest pain Resp: Denies: dyspnea GI: Reports: nausea, vomiting and diarrhea; Denies: hematemesis, coffee ground emesis, hematochezia or melena : Denies: dysuria, urinary frequency or urinary urgency Musc: Denies: neck pain or back pain Skin/Breast: Denies: rash PFSH ED 2 PFSH: Medical History Coronary artery spasm Pacemaker Heart block Surgical History S/P excision of lipoma S/P cardiac pacemaker procedure Social History Smoking and tobacco/nicotine status: former use of tobacco/nicotine Physical Exam 2 Const: COMMON NORMALS: no acute distress GENERAL APPEARANCE: cooperative and comfortable ORIENTATION/CONSCIOUSNESS: Yes awake, Yes oriented to person, Yes oriented to place and Yes oriented to time HENMT: COMMON NORMALS: normocephalic, atraumatic and hearing grossly normal bilaterally HEAD & SCALP: normocephalic and atraumatic Resp: COMMON NORMALS: normal respiratory effort, No retractions, No use of accessory muscles and clear to auscultation bilaterally AUSCULTATION: clear to auscultation bilaterally Cardio: COMMON NORMALS: regular rate, regular rhythm and No murmurs present (Cardio) RATE: regular rate RHYTHM: regular rhythm GI: COMMON NORMALS: Soft to palpation and No hepatosplenomegaly present A USCULTATION: Yes normoactive bowel sounds PALPATION: Yes Soft to palpation, No Tenderness to palpation present (GI), No Guarding due to palpation present (GI) and Yes No hepatosplenomegaly present Extremity: COMMON NORMALS: normal to inspection, capillary refill normal, no clubbing, cyanosis or edema, no calf tenderness and no pedal edema Neuro: SENSORIUM/ORIENTATION: Yes oriented to person, Yes oriented to place and Yes oriented to time Skin: COMMON NORMALS: no rashes or lesions noted GENERAL SKIN EXAM: no rashes or lesions noted Course 2 Vital Signs: Vital signs: Vital Signs Temperature 98 F 10/11/23 10:32 Pulse Rate 60 10/11/23 10:32 Respiratory Rate 13 10/11/23 10:32 Blood Pressure 143/73 10/11/23 10:32 Pulse Oximetry 90 10/11/23 10:32 Oxygen Delivery Me thod Room Air 10/11/23 09:04 MDM - Chest Pain Medical Decision Making Cardiac enzymes negative. EKG showed paced rhythm with no significant abnormalities. Patient has more abdominal discomfort he has had nausea and diarrhea CT did not show any significant abnormalities no leukocytosis hemoglobin stable. Will discharge patient on clinical diet 24 to 48 hours antiemetics and PPI initiated as well follow-up with primary care return if has any worsening symptoms Medical Records I reviewed the patient's medical records. Lab Data I reviewed the patient's lab results. 10/11/23 06:25 10/11/23 06:25 Radiology Impressions Chest X-Ray 10/11/23 06:20 IMPRESSION: No lobar consolidation is appreciated.No interval acute cardiopulmonary changes are appreciated. Abdomen/Pelvis CT 10/11/23 07:00 IMPRESSION: 1. Sigmoid diverticulosis. No evidence of acute diverticulitis. 2. Mild diffuse fatty infiltration of the liver. 3. Normal appendix. 4. Tiny esophageal hernia. 5. A few tiny bilateral renal cysts. 6. Normal caliber abdominal aorta. 7. Enlarged prostate. Recommend correlation PSA. Laboratory Results WBC 10.39 10^3/uL (3.29-11.43) 10/11/23 06:25 RBC 5.47 10^6/uL (3.85-5.65) 10/11/23 06:25 Hgb 16.50 g/dL (11.27-16.99) 10/11/23 06:25 Hct 51.0 % (37-53) 10/11/23 06:25 MCV 93.2 fl (82-101) 10/11/23 06:25 MCH 30.2 pg (27-33) 10/11/23 06:25 MCHC 32.4 g/dL (30-55) 10/11/23 06:25 RDW 12.5 % (12.1-15.1) 10/11/23 06:25 Plt Count 205 10^3/cmm (157-399) 10/11/23 06:25 MPV 9.6 fL (7.4-10.4) 10/11/23 06:25 Neut % (Auto) 86.0 % 10/11/23 06:25 Lymph % (Auto) 8.3 % 10/11/23 06:25 [place] % (Auto) 5.0 % 10/11/23 06:25 Eos % (Auto) 0.1 % 10/11/23 06:25 Baso % (Auto) 0.2 % 10/11/23 06:25 Neut # (Auto) 8.94 10^3/uL (1.8-7.7) H 10/11/23 06:25 Lymph # (Auto) 0.9 10^3/uL (0.8-4.8) 10/11/23 06:25 [place] # (Auto) 0.5 10^3/uL (0.2-0.9) 10/11/23 06:25 Eos # (Auto) 0.0 10^3/uL (0.0-0.8) 10/11/23 06:25 Baso # (Auto) 0.0 10^3/uL (0.0-0.1) 10/11/23 06:25 Nucleated RBC % (auto) 0 % 10/11/23 06:25 Nucleated RBCs # 0.0 /100WBC 10/11/23 06:25 Sodium 139 mmol/L (136-145) 10/11/23 06:25 Potassium 4.1 mmol/L (3.5-5.1) 10/11/23 06:25 Chloride 104 mmol/L (98-107) 10/11/23 06:25 Carbon Dioxide 21 mmol/L (22-29) L 10/11/23 06:25 Anion Gap 18.1 (5-19) 10/11/23 06:25 BUN 15 mg/dL (8-23) 10/11/23 06:25 Creatinine 0.8 mg/dL (0.7-1.2) 10/11/23 06:25 GFR Calculation 96.7 mL/min (90-130) 10/11/23 06:25 Glucose 121 mg/dL (65-115) H 10/11/23 06:25 Calculated Osmolality 290 mOsm/kg (285-295) 10/11/23 06:25 Calcium 9.1 mg/dL (8.5-10.5) 10/11/23 06:25 Total Bilirubin 0.5 mg/dL (0.15-1.2) 10/11/23 06:25 AST 21 U/L (0-40) 10/11/23 06:25 ALT 18 U/L (0-41) 10/11/23 06:25 Alkaline Phosphatase 59 U/L (40-130) 10/11/23 06:25 Troponin T Baseline 13 ng/L (0-15) 10/11/23 06:25 Troponin T 120 Minute 13.87 ng/L (0-15) 10/11/23 08:26 Delta Troponin T 0.87 ABS# (0-10) 10/11/23 08:26 Total Protein 7.5 g/dL (6.6-8.7) 10/11/23 06:25 Albumin 4.1 g/dL (3.5-5.2) 10/11/23 06:25 Globulin 3.4 g/dL (1.3-4.6) 10/11/23 06:25 All radiology interpretation(s) finalized by discharge Discharge Plan Discharge Patient Disposition: Home Clinical Impression: Gastroenteritis Condition: Stable Prescriptions: New ondansetron HCl 4 mg tablet 4 mg PO Q6H PRN (Reason: nausea and vomiting) Qty: 20 0RF No Action eszopiclone 3 mg tablet 3 mg PO BEDTIME trazodone 50 mg tablet 50 mg PO BEDTIME melatonin 10 mg tablet 10 mg PO BEDTIME PRN (Reason: Sleep) Vicks DayQuil-NyQuil 10-5-325mg(d)/ 15-325-6.25mg capsule, sequential 1 cap PO Q6H PRN (Reason: CONGESTION OR COUGH) fluoxetine 40 mg capsule 40 mg PO DAILY nitroglycerin [Nitrostat] 0.4 mg tablet, sublingual 0.4 mg sublingual Q5M PRN (Reason: chest pain) Qty: 25 1RF Rx Instructions: do not exceed 3 doses per episode amoxicillin 875 mg tablet 875 mg PO BID amlodipine 5 mg tablet 5 mg PO QPM rosuvastatin 20 mg tablet 20 mg PO QPM metoprolol tartrate 25 mg tablet 25 mg PO QPM Discharge Orders: Discharge ED (Routine); Ordered 10/11/23 Ordered By: Cristhian Lim Referrals: Jose Wilkerson MD [Primary Care Provider] - Discharge Diet: Usual diet Discharge Activity: Resume usual activity Patient Instructions: Opioid Safety, Pain Management Activity Restrictions/Additional Instructions: Thank you for choosing [facility] for your healthcare needs today. Please realize this is an emergency room and that we are providing you with a medical screening exam and this may not be complete and all inclusive of all the testing and or work up that you may need to determine your ailment or severity of your illness. It is very important that you follow up as instructed or that you return to the Emergency Department should you have concerns or if your condition changes or worsens in any way. You were seen today with epigastric and back pain. Your cardiac enzymes were normal your EKG is paced does not show significant abnormalities. The remainder of your laboratory studies are unremarkable. CT did not show any acute problems. We recommend that you stick with a clear liquid diet for the next 24 to 48 hours and advance as tolerated use ondansetron as needed. Coding Level of Care Code ED Compliance Review Officer for Brent Morales
[2023-10-11 06:50] LABS: Alanine Aminotransferase 18 U/L (0-41); Albumin Level 4.1 g/dL (3.5-5.2); Alkaline Phosphatase 59 U/L (40-130); Anion Gap 18.1 (5-19); Aspartate Amino Transferase 21 U/L (0-40); Blood Urea Nitrogen 15 mg/dL (8-23); Calcium 9.1 mg/dL (8.5-10.5); Carbon Dioxide 21 mmol/L (22-29); Chloride 104 mmol/L (98-107); Creatinine Clr Calc Pharmacy 108.7666; Globulin 3.4 g/dL (1.3-4.6); Glomerular Filtration Rate 96.7 mL/min (90-130); Glucose 121 mg/dL (65-115); Osmolality Calculated 290 mOsm/kg (285-295); Potassium 4.1 mmol/L (3.5-5.1); Sodium 139 mmol/L (136-145); Total Bilirubin 0.5 mg/dL (0.15-1.2); Total Protein 7.5 g/dL (6.6-8.7)
[2023-10-11 06:52] LABS: Troponin(5th) Baseline 13 ng/L (0-15)
--- NOTE | 2023-10-11 07:00 | CT_ITS ---
WS: [id number] CT ABDOMEN PELVIS TECHNIQUE: Contrast-enhanced CT of the abdomen and pelvis with coronal and sagittal reformatted image s. CLINICAL INFORMATION: abd pain COMPARISON: CTA 2019 DLP: 817.[address] scans at [facility] use at least one of these dose optimization techniques: automated e xposure control; mA and/or kV adjustment per patient size (includes targeted exams where dose is matc hed to clinical indication); or iterative reconstruction. FINDINGS: Lung bases are well aerated. Mild diffuse fatty infiltration of the liver. Normal spleen. Normal panc reatic parenchymal enhancement. Normal portal vein and splenic vein. Normal spleen. Small esophageal hiatal hernia. Celiac and SMA are patent in the upper abdomen. Adrenal glands are normal. Normal shun l parenchymal enhancement. No hydronephrosis. Small renal cysts. Normal caliber abdominal aorta. Aort ic calcification. Sigmoid diverticulosis. No evidence of acute diverticulitis. Normal appendix. Enlarged calcified pros malloy measuring 4.[address]/CT abdomen pelvis w con* [id number] IMPRESSION: 1. Sigmoid diverticulosis. No evidence of acute diverticulitis. 2. Mild diffuse fatty infiltration of the liver. 3. Normal appendix. 4. Tiny esophageal hernia. 5. A few tiny bilateral renal cysts. 6. Normal caliber abdominal aorta. 7. Enlarged prostate. Recommend correlation PSA.
--- NOTE | 2023-10-11 07:05 | ECG_ITS ---
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 Measurements Intervals [place] Rate: 60 P: 122 CT: 258 QRS: 55 QRSD: 93 T: 54 QT: 389 QTc: 389 Interpretive Statements ELECTRONIC ATRIAL PACEMAKER Compared to ECG 10/11/2023 06:16:44 No significant changes Electronically Signed On 10-11-2023 13:57:01 CDT by Raj Ha M.D. [id number]
[2023-10-11] MEDS: ondansetron 2 mg/ML SDV 2 mL 4 MG IVP (07:31)
[2023-10-11 07:36] VITALS: BP 125/88; PULSE 60; RESP 13; O2SAT 99
[2023-10-11] MEDS: iohexol 350 mg/mL 500 mL Btl (per mL) IV (07:42)
[2023-10-11] MEDS: sodium chloride 0.9% 500 ML 999 ML IV (08:30)
[2023-10-11 08:49] LABS: Troponin 5 2HR 13.87 ng/L (0-15); Troponin 5 2HR Delta 0.87 ABS# (0-10)
[2023-10-11 09:04] VITALS: BP 143/73; PULSE 60; O2SAT 90
[2023-10-11] MEDS: lidocaine 2% viscous 15 ML, aluminum-mag hydrox-simethicon 30 ML, sucralfate oral liq 1 GM PO (10:26)
[2023-10-11 10:32] VITALS: BP 143/73; PULSE 60; RESP 13; TEMP 36.6; O2SAT 90
== END 2023-10-11 10:33 | disposition home or self-care (01) ==
PROVIDERS: Emergency Provider Family Medicine; PCP Family Medicine
DX: K52.9 Noninfective gastroenteritis and colitis, unspecified (principal); Z95.0 Presence of cardiac pacemaker; Z87.891 Personal history of nicotine dependence
CPT/HCPCS: 36415; 71045; 74177; 80053; 84484; 85025; 93005; 96361; 96374; 99285; J2405; J7040; Q9967

== ENCOUNTER 2024-08-19 14:27 | Emergency (ER) | payer MEDICARE, SELFPAY ==
[2024-08-19 14:15] VITALS: BP 153/69; PULSE 61; RESP 17; TEMP 36.3; O2SAT 97; BMI 27.1
--- NOTE | 2024-08-19 14:17 | ECG_ITS ---
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 Measurements Intervals [place] Rate: 64 P: 130 [place]: 268 QRS: 81 QRSD: 98 T: 73 QT: 379 QTc: 392 Interpretive Statements ELECTRONIC ATRIAL PACEMAKER Compared to ECG 10/11/2023 07:05:54 No significant changes Electronically Signed On 08-19-2024 22:24:08 CDT by Raj Ha M.D. [email or web address] [id number]
--- NOTE | 2024-08-19 14:29 | XR_ITS ---
WS: [id number] Exam: XR chest 1V portable [id number] Date/Time of Exam: 08/19/2024 2:34 PM Reason For Exam: dyspnea/cough Comparison 10/11/2023. The lungs are clear and fully inflated. Normal cardiomediastinal silhouette and regional bony elements. Left-sided cardiac pacer in place. No pleural effusion. Mild chronic plaque atelectasis in the LEFT base. XR/XR chest 1V portable [id number] IMPRESSION: 1. Negative chest.
--- NOTE | 2024-08-19 14:40 | W.ED.CHESTPA ---
HPI - Chest Pain General: Chief Complaint: Chest Pain Stated Complaint: chest pain History of Present Illness: 69-year-old male presents to the emergency room with complaint of chest pain. Pain began over a pad over to pick something up. It is reproducible with palpation of the anterior axillary line at the level of the 5th and 6th ribs. He did get sweaty with it and short of breath he took several nitro with minimal change in his symptoms that did make him very lightheaded. He also received aspirin 324 mg en route. He has a known history of heart disease. No fever sweats or chills or productive cough Associated symptoms: Deny abdominal pain, dyspnea or fever(s) Related Data Home Medications ?Medication ?Instructions ?Recorded ?Confirmed eszopiclone 3 mg tablet 3 mg PO BEDTIME PRN Sleep 12/27/19 08/19/24 trazodone 50 mg tablet 50 mg PO BEDTIME 12/27/19 08/19/24 melatonin 10 mg tablet 10 mg PO BEDTIME PRN Sleep 05/20/22 08/19/24 fluoxetine 40 mg capsule 40 mg PO QAM 01/27/23 08/19/24 amlodipine 5 mg tablet 5 mg PO QPM 10/11/23 08/19/24 Previous Rx's ?Medication ?Instructions ?Recorded nitroglycerin 0.4 mg sublingual 0.4 mg sublingual Q5M PRN chest 11/29/21 tablet (Nitrostat) pain #25 tabs ondansetron HCl 4 mg tablet 4 mg PO Q6H PRN nausea and 10/11/23 vomiting #20 tabs rosuvastatin 20 mg tablet 20 mg PO QPM #30 tabs 01/05/24 metoprolol tartrate 25 mg tablet 25 mg PO QPM #90 tabs 01/29/24 Allergies Allergy/AdvReac Type Severity Reaction Status Date / Time No Known Allergies Allergy Verified 01/27/23 08:27 Review of Systems Const: Denies: fever(s) or chills Card: Reports: chest pain (Reproducible chest wall pain) Resp: Denies: dyspnea GI: Denies: abdominal pain : Denies: dysuria, urinary frequency or urinary urgency Musc: Denies: neck pain or back pain Skin/Breast: Denies: rash PFSH ED PFSH: Medical History Coronary artery spasm Pacemaker Heart block Surgical History S/P excision of lipoma S/P cardiac pacemaker procedure Social History Smoking and tobacco/nicotine status: former use of tobacco/nicotine Physical Exam Const: GENERAL APPEARANCE: cooperative ORIENTATION/CONSCIOUSNESS: Yes awake, Yes oriented to person, Yes oriented to place and Yes oriented to time HENMT: COMMON NORMALS: normocephalic, atraumatic and hearing grossly normal bilaterally HEAD & SCALP: normocephalic and atraumatic Resp: COMMON NORMALS: normal respiratory effort, No retractions, No use of accessory muscles and clear to auscultation bilaterally AUSCULTATION: clear to auscultation bilaterally Cardio: COMMON NORMALS: regular rate, regular rhythm and No murmurs present (Cardio) RATE: regular rate RHYTHM: regular rhythm GI: COMMON NORMALS: Soft to palpation and No hepatosplenomegaly present AUSCULTATION: Yes normoactive bowel sounds PALPATION: Yes Soft to palpation, No Tenderness to palpation present (GI), No Guarding due to palpation present (GI) and Yes No hepatosplenomegaly present Extremity: COMMON NORMALS: normal to inspection, capillary refill normal, no clubbing, cyanosis or edema, no calf tenderness and no pedal edema Neuro: SENSORIUM/ORIENTATION: Yes oriented to person, Yes oriented to place and Yes oriented to time Skin: COMMON NORMALS: no rashes or lesions noted GENERAL SKIN EXAM: no rashes or lesions noted Course Vital Signs: Vital signs: Vital Signs Temperature 97.3 F L 08/19/24 14:15 Pulse Rate 61 08/19/24 17:34 Respiratory Rate 17 08/19/24 14:15 Blood Pressure 144/77 08/19/24 17:34 Pulse Oximetry 96 08/19/24 17:34 Oxygen Delivery Me thod Room Air 08/19/24 16:58 MDM - Chest Pain Medical Decision Making Patient has reproducible pain with deep inspiration and with palpation on his chest. He has no acute EKG changes cardiac enzymes are negative both the 1st and 2nd 1 are below 10. This complaint of symptoms is atypical for acute coronary syndrome. Will discharge the patient home. If he has any worsening or change symptoms return to the emergency room. Lab Data 08/19/24 14:00 08/19/24 14:00 Radiology Impressions Chest X-Ray 08/19/24 14:29 IMPRESSION: 1. Negative chest. Ribs X-Ray 08/19/24 14:44 IMPRESSION: 1. Negative LEFT rib study. Laboratory Results WBC 13.98 10^3/uL (3.29-11.43) H 08/19/24 14:00 RBC 5.61 10^6/uL (3.85-5.65) 08/19/24 14:00 Hgb 16.50 g/dL (11.27-16.99) 08/19/24 14:00 Hct 51.5 % (37-53) 08/19/24 14:00 MCV 91.8 fl (82-101) 08/19/24 14:00 MCH 29.4 pg (27-33) 08/19/24 14:00 MCHC 32.0 g/dL (30-55) 08/19/24 14:00 RDW 12.6 % (12.1-15.1) 08/19/24 14:00 Plt Count 307 10^3/cmm (157-399) 08/19/24 14:00 MPV 10.2 fL (7.4-10.4) 08/19/24 14:00 Neut % (Auto) 62.5 % 08/19/24 14:00 Lymph % (Auto) 25.5 % 08/19/24 14:00 Bollinger % (Auto) 7.9 % 08/19/24 14:00 Eos % (Auto) 3.4 % 08/19/24 14:00 Baso % (Auto) 0.4 % 08/19/24 14:00 Neut # (Auto) 8.75 10^3/uL (1.8-7.7) H 08/19/24 14:00 Lymph # (Auto) 3.6 10^3/uL (0.8-4.8) 08/19/24 14:00 Bollinger # (Auto) 1.1 10^3/uL (0.2-0.9) H 08/19/24 14:00 Eos # (Auto) 0.5 10^3/uL (0.0-0.8) 08/19/24 14:00 Baso # (Auto) 0.1 10^3/uL (0.0-0.1) 08/19/24 14:00 Nucleated RBC % (auto) 0 % 08/19/24 14:00 Nucleated RBCs # 0.0 /100WBC 08/19/24 14:00 Sodium 138 mmol/L (136-145) 08/19/24 14:00 Potassium 4.7 mmol/L (3.5-5.1) 08/19/24 14:00 Chloride 97 mmol/L (98-107) L 08/19/24 14:00 Carbon Dioxide 26 mmol/L (22-29) 08/19/24 14:00 Anion Gap 19.7 (5-19) H 08/19/24 14:00 BUN 11 mg/dL (8-23) 08/19/24 14:00 Creatinine 1.0 mg/dL (0.7-1.2) 08/19/24 14:00 GFR Calculation 74.5 mL/min (90-130) L 08/19/24 14:00 Glucose 116 mg/dL (65-115) H 08/19/24 14:00 Calculated Osmolality 286 mOsm/kg (285-295) 08/19/24 14:00 Calcium 10.1 mg/dL (8.5-10.5) 08/19/24 14:00 Total Bilirubin 0.4 mg/dL (0.15-1.2) 08/19/24 14:00 AST 20 U/L (0-40) 08/19/24 14:00 ALT 15 U/L (0-41) 08/19/24 14:00 Alkaline Phosphatase 87 U/L (40-130) 08/19/24 14:00 Troponin T Baseline 9 ng/L (0-15) 08/19/24 14:00 Troponin T 120 Minute 8.18 ng/L (0-15) 08/19/24 16:06 Delta Troponin T -0.82 ABS# (0-10) L 08/19/24 16:06 Total Protein 8.3 g/dL (6.6-8.7) 08/19/24 14:00 Albumin 5.0 g/dL (3.5-5.2) 08/19/24 14:00 Globulin 3.3 g/dL (1.3-4.6) 08/19/24 14:00 All radiology interpretation(s) finalized by discharge Discharge Plan Discharge Patient Disposition: Home Clinical Impression: Acute chest wall pain Condition: Stable Prescriptions: No Action eszopiclone 3 mg tablet 3 mg PO BEDTIME PRN (Reason: Sleep) trazodone 50 mg tablet 50 mg PO BEDTIME melatonin 10 mg tablet 10 mg PO BEDTIME PRN (Reason: Sleep) fluoxetine 40 mg capsule 40 mg PO QAM nitroglycerin [Nitrostat] 0.4 mg tablet, sublingual 0.4 mg sublingual Q5M PRN (Reason: chest pain) Qty: 25 1RF Rx Instructions: do not exceed 3 doses per episode rosuvastatin 20 mg tablet 20 mg PO QPM Qty: 30 1RF metoprolol tartrate 25 mg tablet 25 mg PO QPM Qty: 90 2RF amlodipine 5 mg tablet 5 mg PO QPM ondansetron HCl 4 mg tablet 4 mg PO Q6H PRN (Reason: nausea and vomiting) Qty: 20 0RF Discharge Orders: Discharge ED (Routine); Ordered 08/19/24 Ordered By: Cristhian Lim Referrals: Jose Wilkerson MD [Primary Care Provider] - Discharge Diet: Usual diet Discharge Activity: Resume usual activity Patient Instructions: Opioid Safety, Pain Management Activity Restrictions/Additional Instructions: Thank you for choosing [facility] for your healthcare needs today. It is very important that you follow up as instructed or that you return to the Emergency Department should you have concerns or if your condition changes or worsens in any way. You are seen emergency room with complaint of episode of chest pain after bending over. Your cardiac enzymes were normal. Your description of the event sounds more like a musculoskeletal chest wall pain. Given normal cardiac enzymes and ability to reproduce the pain with palpation of the chest wall recommend just observing continue all of your previously prescribed medications. Print Language: Mongolian Coding Level of Care Code ED Manager Of Data for Brent Morales
--- NOTE | 2024-08-19 14:44 | XR_ITS ---
WS: [id number] Exam: XR ribs LT 2V* [id number] Date/Time of Exam: 08/19/2024 3:01 PM Reason For Exam: pain No acute LEFT rib fracture. The LEFT lung is fully expanded and clear. No pleural or pulmonary reactive changes. XR/XR ribs LT 2V* [id number] IMPRESSION: 1. Negative LEFT rib study.
[2024-08-19 15:20] LABS: Basophils # 0.1 10^3/uL (0.0-0.1); Basophils % 0.4 %; Eosinophils # 0.5 10^3/uL (0.0-0.8); Eosinophils % 3.4 %; Hematocrit 51.5 % (37-53); Lymphocytes # 3.6 10^3/uL (0.8-4.8); Lymphocytes % 25.5 %; Mean Corpuscular Hemoglobin 29.4 pg (27-33); Mean Corpuscular Volume 91.8 fl (82-101); Mean Platelet Volume 10.2 fL (7.4-10.4); Monocytes # 1.1 10^3/uL (0.2-0.9); Monocytes % 7.9 %; Neutrophils # 8.75 10^3/uL (1.8-7.7); Neutrophils % 62.5 %; Nucleated Red Blood Cells % 0 %; Platelet Count 307 10^3/cmm (157-399); Red Blood Count 5.61 10^6/uL (3.85-5.65); Red Cell Distribution Width 12.6 % (12.1-15.1); White Blood Count 13.98 10^3/uL (3.29-11.43)
[2024-08-19 15:42] LABS: Troponin(5th) Baseline 9 ng/L (0-15)
[2024-08-19 15:46] LABS: Alanine Aminotransferase 15 U/L (0-41); Alkaline Phosphatase 87 U/L (40-130); Anion Gap 19.7 (5-19); Aspartate Amino Transferase 20 U/L (0-40); Blood Urea Nitrogen 11 mg/dL (8-23); Calcium 10.1 mg/dL (8.5-10.5); Carbon Dioxide 26 mmol/L (22-29); Chloride 97 mmol/L (98-107); Creatinine Clr Calc Pharmacy 83.9979; Globulin 3.3 g/dL (1.3-4.6); Glomerular Filtration Rate 74.5 mL/min (90-130); Glucose 116 mg/dL (65-115); Osmolality Calculated 286 mOsm/kg (285-295); Potassium 4.7 mmol/L (3.5-5.1); Sodium 138 mmol/L (136-145); Total Bilirubin 0.4 mg/dL (0.15-1.2); Total Protein 8.3 g/dL (6.6-8.7)
[2024-08-19 16:31] LABS: Troponin 5 2HR 8.18 ng/L (0-15)
[2024-08-19 16:41] LABS: Troponin 5 2HR Delta -0.82 ABS# (0-10)
--- NOTE | 2024-08-19 16:46 | ECG_ITS ---
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 Measurements Intervals [place] Rate: 60 P: 133 WV: 179 QRS: 265 QRSD: 157 T: 83 QT: 466 QTc: 466 Interpretive Statements ELECTRONIC ATRIAL PACEMAKER ELECTRONIC VENTRICULAR PACEMAKER Compared to ECG 08/19/2024 14:17:33 No significant changes Electronically Signed On 08-19-2024 22:26:49 CDT by aRj Ha M.D. [email or web address]
[2024-08-19 16:58] VITALS: BP 154/78; PULSE 61; O2SAT 96
[2024-08-19 17:34] VITALS: BP 144/77; PULSE 61; O2SAT 96
== END 2024-08-19 17:35 | disposition home or self-care (01) ==
PROVIDERS: Emergency Provider Family Medicine; PCP Family Medicine
DX: R07.89 Other chest pain (principal); Z95.0 Presence of cardiac pacemaker
CPT/HCPCS: 36415; 71045; 71100; 80053; 84484; 85025; 93005; 99285